=== PATIENT | male | born 1985 | race Caucasian/White ===

== ENCOUNTER 2024-07-25 16:47 | Emergency (ER) | payer BC, SELFPAY ==
[2024-07-25 16:56] VITALS: BP 128/75
[2024-07-25 17:10] LABS: % Basophils 0.5 % (0-2); % Eosinophils 2.8 % (0-6); % Immature Granulocytes 0.3 % (0-0.5); % Lymphocytes 10.9 % (20.5-51.1); % Monocytes 8.8 % (1.7-9.3); % Neutrophils 76.7 % (42.2-75.2); Absolute Eosinophils 0.2 10^3/uL (0-0.7); Absolute Lymphocytes 0.7 10^3/uL (1.2-3.4); Absolute Monocytes 0.6 10^3/uL (0.1-0.6); Hematocrit 34.6 % (39.0-52.0); Hemoglobin 12.6 g/dL (13.0-18.0); Mean Corp Hgb Conc. 36.4 g/dL (33.0-37.0); Mean Corpuscular Hgb 29.2 pg (27.0-31.0); Mean Corpuscular Volume 80.1 fL (80.0-94.0); Mean Platelet Volume 9.6 fL (7.4-10.4); Nucleated Red Blood Cells % 0 % (-); Platelet Count 210 10^3/uL (130-400); Red Blood Cell Count 4.32 10^6/uL (4.70-6.10); Red Cell Dist. Width 11.8 % (11.5-14.5); White Blood Cell Count 6.5 10^3/uL (4.8-10.8)
[2024-07-25 17:25] LABS: COVID-19 Antigen Negative (Negative)
[2024-07-25 17:31] LABS: ALT (SGPT) 61 U/L (0-50); AST (SGOT) 50 U/L (17-59); Albumin 4.2 g/dl (3.5-5.0); Alkaline Phosphatase 139 U/L (38-126); Blood Urea Nitrogen 12 mg/dl (9-20); Calcium 8.8 mg/dl (8.4-10.2); Chloride 101 mmol/L (98-107); Glucose 108 mg/dl (70-99); Potassium 3.7 mmol/L (3.5-5.1); Sodium 139 mmol/L (135-145)
[2024-07-25 17:39] LABS: Carbon Dioxide 22 mmol/L (22-30); Total Bilirubin 0.7 mg/dl (0.2-1.3); eGFR > 60.00
--- NOTE | 2024-07-25 18:29 | ED.GENMED ---
History of Present Illness
General
Chief Complaint: Cold/Flu/URI Symptoms
Source: patient
Time Seen by Provider: 07/25/24 18:19
History of Present Illness
History of Present Illness:
This patient is a 38-year-old male who is feeling his usual self until approximately 8 days ago when he developed fevers, chills, persistent cough and mild sore throat. He does note that his son had the same symptoms as did his , both symptoms
are now fully resolved but he is concerned because his cough persists. Sometimes, since the symptoms began, he will feel short of breath when he goes up a flight of stairs associated with increase in his cough. The fever has gotten better over the
last few days. He did have a telehealth appointment 4 days ago and was prescribed a nasal spray and a 'pill for the cough', both of which he has not been compliant with given that he did not feel it was helping him. He denies leg swelling, history
of DVT, smoking history, recent immobilization, or other PE risk factors. He says his chest feels 'sore' 'from all the coughing', not pleuritic in nature. He denies hemoptysis, chest tightness, or other complaints.
Past History
Past History
ED Past Medical History: None
ED Past Surgical History: Urological
Social History
Tobacco: Non-smoker
Alcohol: None
Personal:
Living: with family
Phy Exam
Physical Exam
Physical Exam:
GENERAL: Alert , in no apparent distress but obvious cough noted
EYE: pupils equal and reactive
NECK: Supple, no significant adenopathy.
ENT: o/p clr, mmm.
CARDIAC: Regular rate and rhythm .
LUNGS: Equal breath sounds bilaterally, no acute respiratory distress, no rales or rhonchi, mild end expiratory wheezing
ABDOMEN: Soft, without focal tenderness, no r/g, no cvat
NEUROLOGICAL: Alert and oriented, no focal neuro deficits
SKIN: Warm and dry, skin intact.
MUSCULOSKELETAL: No edema, well perfused.
PSYCH: Normal and appropriate interaction.
Course
Orders/Labs/Results
Orders:
Orders
07/25/24 16:48
Electrocardiogram (*1) Urgent
Reason for Study: Shortness of Breath
07/25/24 16:49
EKG- Treatment ONCE
07/25/24 16:59
CXR2 [CR Chest - 2 Views ] Urgent
Comment:
Reason For Exam: SOB
07/25/24 17:04
CMP [Comprehensive Metabolic Panel] Urgent
COVID-19 Antigen Urgent
Source: Nasal Swab
Complete Blood Count/With Diff Urgent
Influenza A+B Rapid Molecular Urgent
JOSE Source: Nasal Swab
Specimen Description:
07/25/24 18:28
Ipratropium/Albuterol Sulfate [Duoneb] 3 ml INH R NOW STA
Abnormal Lab Results
07/25/24
17:04
RBC 4.32 L 10^6/uL
(4.70-6.10)
Hgb 12.6 L g/dL
(13.0-18.0)
Hct 34.6 L %
(39.0-52.0)
Absolute Lymphs (auto) 0.7 L 10^3/uL
(1.2-3.4)
Neutrophils % 76.7 H %
(42.2-75.2)
Lymphocytes % 10.9 L %
(20.5-51.1)
Glucose 108 H mg/dl
(70-99)
ALT 61 H U/L
(0-50)
Alkaline Phosphatase 139 H U/L
(38-126)
07/25/24 17:04
07/25/24 17:04
Vital Signs
Initial and Last Documented VS:
Initial Vital Signs
Temp Pulse Resp BP Pulse Ox
98.8 F 96 18 128/75 93
07/25/24 16:56 07/25/24 16:56 07/25/24 16:56 07/25/24 16:56 07/25/24 16:56
Last Documented Vital Signs
Temp Pulse Resp BP Pulse Ox
98.8 F 96 18 128/75 93
07/25/24 16:56 07/25/24 16:56 07/25/24 16:56 07/25/24 16:56 07/25/24 16:56
*Critical Care Note
Total Time (30-74mins, 75-104mins- exclusive of procedures): Not Applicable
Update Note
Update Note:
Patient presents to the Emergency Department with __intermittent fevers, cough
Number and Complexity of Problems Addressed at the Encounter
� Chronic conditions affecting care:
� Acute Exacerbation and/or Progression of Chronic Illness:
� Differential Diagnosis includes: But not limited to pneumonia, bronchitis, allergies, etc. etc.
Amount and/or Complexity of Data to be Reviewed and Analyzed
� I performed an independent evaluation of and my interpretation is:
EKG: Read by me, normal sinus rhythm, normal rate, normal axis, no acute ischemia
CT:
Xrays: Read by me, no pneumothorax, no pneumonia noted
Laboratory Studies: Generally unremarkable, flu and COVID-negative, no white blood cell count elevation
Other:
� Review of other/old records reveals:
� Clinical information was obtained by an independent historian:
� Prescriptions/Medications Considered but not given:
� Further testing considered but not performed:
Risk of Complications and/or Morbidity or Mortality of Patient Management
� Social determinants of health affecting care:
� Discussion with other providers (PCP, Hospitalists, Consultants, etc):
� Escalation of care including admission/observation vs risk of discharge considered: 7:16 PM reassessment patient status post neb feels much better, no obvious cough here, lungs CTA. He is pleased with his results, understands
reasons return to the ER and importance of close follow-up
ED Attending Note
-
Portions of this chart may have been created with voice recognition software.� Occasional wrong word or��sound alike� substitutions may have occurred due to the inherent limitations of voice recognition software.
Discharge Plan
Departure
Patient Disposition: Home (Routine Discharge)
Date of Disposition: 07/25/24
Time of Disposition: 19:15
Patient with high blood pressure during this ER visit?: Yes
Condition: Good
Discharge Problem:
Cough
Instructions: Cough, Adult ED, BLOOD PRESSURE
Prescriptions:
New
albuterol sulfate 90 mcg/actuation HFA aerosol inhaler
2 inh inhalation Q4H PRN (Reason: shortness of breath or wheezing) Qty: 8.5 0RF
Referrals:
Javon Campa, DO [Family Provider] - Follow up in 2-3 days
Activity Restrictions/Additional Instructions:
IF YOU DEVELOP PERSISTENT FEVER, WORSENING OR NEW CHEST PAIN, TROUBLE BREATHING, SWELLING, TROUBLE SWALLOWING, BLEEDING, GET WORSE, DO NOT GET BETTER, OR OTHER WORRISOME SIGNS, PLEASE RETURN TO THE ER IMMEDIATELY.
Interventions
Interventions:
*Risk Screen - Suicide Last Done: 07/25/24 16:56
*General Assessment Last Done: 07/25/24 16:56
*Neglect/Abuse Screening Last Done: 07/25/24 16:56
*ED COVID-19 Vaccine History Last Done: 07/25/24 16:56
ED- Pulmonary Assessment Last Done: 07/25/24 18:02
Discharge Date and Time
Print Language: TRINIDADIAN
[2024-07-25] MEDS: DUONEB 3 ML INH (18:39)
[2024-07-25] MEDS: ProAIR HFA INHALER 2 PUFF INH (19:42)
[2024-07-25 19:43] VITALS: BP 133/88
== END 2024-07-25 19:44 | disposition home or self-care (01) ==
LOC: EMR 16:47
PROVIDERS: Emergency Medicine; EMERGENCY PHYSICIAN Emergency Medicine; FAMILY PHYSICIAN Family Medicine
DX: R05.9 Cough, unspecified (principal); R50.9 Fever, unspecified; R06.02 Shortness of breath; J02.9 Acute pharyngitis, unspecified; Z11.52 Encounter for screening for COVID-19; R03.0 Elevated blood-pressure reading, without diagnosis of hypertension; Z91.148 Patient's other noncompliance with medication regimen for other reason
CPT/HCPCS: 99284; 94640 ×2; 71046; 80053; 85025; 87502; 87811; 93005